=== PATIENT | male | born 1950 | race African-American/Black ===

== ENCOUNTER 2019-05-26 14:37 | Inpatient (IN) | payer OTHER, MEDICAID ==
[~2019-05-26] VITALS: Ht 165.1 cm; Wt 98.9 kg
[2019-05-26 14:41] VITALS: BP_SYST 120
[2019-05-26] MEDS ORDERED: MORPHINE 4 MG/ML INJ. SYRINGE IVP ONE (15:00)
[2019-05-26] MEDS ORDERED: ONDANSETRON HCL 4 MG/2 ML VIAL IVP ONE (15:00)
[2019-05-26] MEDS ORDERED: PIPERACILLIN/TAZO 3.375 GM in NS 50 ML IV ONE (15:00)
[2019-05-26 15:05] LABS: BASOPHILS # (AUTO) 0.1 K/uL (0.0-0.2); BASOPHILS % (AUTO) 0.9 % (0.0-2.0); EOSINOPHILS # (AUTO) 0.1 K/uL (0.0-0.4); EOSINOPHILS % (AUTO) 0.6 % (0.0-4.0); HEMATOCRIT 33.7 % (36-54); HEMOGLOBIN 10.8 g/dL (14.0-18.0); LYMPHOCYTES # (AUTO) 2.1 K/uL (1.0-5.5); LYMPHOCYTES % (AUTO) 20.5 % (20.5-51.5); MEAN CORPUSCULAR HEMOGLOBIN 30 pg (27-31); MEAN CORPUSCULAR HGB CONC 32 % (32-36); MEAN CORPUSCULAR VOLUME 94 fL (79.0-98.0); MONOCYTES % (AUTO) 9.3 % (1.7-9.3); NEUTROPHILS # (AUTO) 7.1 K/uL (1.8-7.7); NEUTROPHILS % (AUTO) 68.7 % (40.0-70.0); PLATELET COUNT (AUTO) 151 K/uL (130-430); RED BLOOD CELL COUNT(AUTO) 3.58 MIL/uL (4.2-6.2); RED CELL DISTRIBUTION WIDTH 21.4 % (9.0-15.0); WHITE BLOOD COUNT (AUTO) 10.4 K/uL (4.8-10.8)
[2019-05-26 15:19] LABS: CHLORIDE 102 mmol/L (98-107); CREATININE 4.36 mg/dL (0.55-1.30); GLUCOSE 188 mg/dL (70-99); UREA NITROGEN, BLOOD 11 mg/dL (8-21)
[2019-05-26 15:22] LABS: GFR AFRICAN AMERICAN 17 mL/min (>90)
[2019-05-26 15:23] LABS: INR 1.2 (0.80-1.20); PROTHROMBIN TIME 12.2 SECS (9.5-12.5)
[2019-05-26 15:24] LABS: ALANINE AMINOTRANSFERASE 7 U/L (12-78); ALBUMIN 1.9 g/dL (3.4-4.8); ASPARTATE AMINOTRANSFERASE 9 U/L (10-37); TOTAL BILIRUBIN 0.7 mg/dL (0.0-1.0)
[2019-05-26 15:26] LABS: ALCOHOL, BLOOD < 3 mg/dL (<10); POTASSIUM 2.5 mmol/L (3.5-5.1)
[2019-05-26 15:31] LABS: ANION GAP 4 (5-15); SODIUM SERUM 138 mmol/L (136-145)
[2019-05-26] MEDS ORDERED: PIPERACILLIN/TAZOBACTAM 3.375 GM/VIAL (ZOSYN) IV ONE (15:32)
[2019-05-26] MEDS ORDERED: METR500T PO (15:58)
[2019-05-26] MEDS ORDERED: CALC0.258 PO (15:58)
[2019-05-26] MEDS ORDERED: CLAR250T12 PO (15:58)
[2019-05-26] MEDS ORDERED: CAS50 PO ×2 (15:58→16:02)
[2019-05-26] MEDS ORDERED: NACL 0.9% 3,000 ML IV ONE (16:00)
[2019-05-26] MEDS ORDERED: POTASSIUM CHLORIDE 20 MEQ TAB.PRT.SR PO ONE (16:00)
[2019-05-26] MEDS ORDERED: SITA100T11 PO (16:02)
[2019-05-26] MEDS ORDERED: PRO40 PO (16:02)
[2019-05-26] MEDS ORDERED: LIP40 PO (16:02)
[2019-05-26] MEDS ORDERED: CLOP300T2 PO (16:02)
[2019-05-26] MEDS ORDERED: CARV3.1246 PO (16:02)
[2019-05-26] MEDS ORDERED: FOLI-43 PO (16:02)
[2019-05-26 20:15] VITALS: BP_SYST 93
[2019-05-26] MEDS ORDERED: DEXTROSE 50% JECT 50 ML DISP.SYRIN IVP PRN (20:30)
[2019-05-26 21:00] VITALS: BP_SYST 92
[2019-05-26] MEDS: CARVEDILOL 3.125 MG TABLET (COREG) PO SCH (21:00)
[2019-05-26] MEDS: CALCITRIOL 0.25 MCG CAPSULE PO SCH (22:12)
[2019-05-27 00:21] VITALS: BP_SYST 111
[2019-05-27] MEDS ORDERED: HYDROcodone/ACETAMIN 5-325 MG TAB (NORCO/ VICODIN) PO SCH (05:15)
[2019-05-27] MEDS: DIPHENHYDRAMINE HCL 25 MG CAPSULE PO PRN ×3 (05:41→23:41)
[2019-05-27 05:57] LABS: BASOPHILS % (AUTO) 0.5 % (0.0-2.0); EOSINOPHILS # (AUTO) 0.1 K/uL (0.0-0.4); EOSINOPHILS % (AUTO) 1.4 % (0.0-4.0); HEMATOCRIT 32.1 % (36-54); HEMOGLOBIN 10.4 g/dL (14.0-18.0); LYMPHOCYTES # (AUTO) 1.4 K/uL (1.0-5.5); LYMPHOCYTES % (AUTO) 15.3 % (20.5-51.5); MEAN CORPUSCULAR HEMOGLOBIN 31 pg (27-31); MEAN CORPUSCULAR HGB CONC 33 % (32-36); MEAN CORPUSCULAR VOLUME 95 fL (79.0-98.0); MONOCYTES # (AUTO) 1.1 K/uL (0.0-1.0); MONOCYTES % (AUTO) 11.5 % (1.7-9.3); NEUTROPHILS # (AUTO) 6.7 K/uL (1.8-7.7); NEUTROPHILS % (AUTO) 71.3 % (40.0-70.0); PLATELET COUNT (AUTO) 146 K/uL (130-430); RED BLOOD CELL COUNT(AUTO) 3.39 MIL/uL (4.2-6.2); RED CELL DISTRIBUTION WIDTH 21.6 % (9.0-15.0); WHITE BLOOD COUNT (AUTO) 9.3 K/uL (4.8-10.8)
[2019-05-27] MEDS: PANTOPRAZOLE SODIUM 40 MG TAB PO SCH ×2 (06:00→18:07)
[2019-05-27 06:55] LABS: ALBUMIN 1.8 g/dL (3.4-4.8); CALCIUM 7.7 mg/dL (8.4-11.0); CREATININE 4.73 mg/dL (0.55-1.30); TOTAL BILIRUBIN 0.6 mg/dL (0.0-1.0)
[2019-05-27 07:36] LABS: POTASSIUM 2.5 mmol/L (3.5-5.1)
[2019-05-27] MEDS ORDERED: POTASSIUM CHLORIDE 20 MEQ TAB.PRT.SR PO ONE (08:00)
[2019-05-27] MEDS: ATORVASTATIN 20 MG TABLET PO SCH (08:10)
[2019-05-27] MEDS: CARVEDILOL 3.125 MG TABLET (COREG) PO SCH ×2 (08:10→20:36)
[2019-05-27] MEDS: CLOPIDOGREL BISULFATE 75 MG TABLET PO SCH (08:10)
[2019-05-27] MEDS: CALCITRIOL 0.25 MCG CAPSULE PO SCH ×4 (08:10→20:35)
[2019-05-27] MEDS: FOLIC ACID 1 MG TABLET PO SCH (08:10)
[2019-05-27 08:29] VITALS: BP_SYST 107
[2019-05-27] MEDS ORDERED: BICALUTAMIDE 50 MG TABLET PO SCH ×2 (09:00)
[2019-05-27] MEDS: BICALUTAMIDE 50 MG PO SCH (11:58)
[2019-05-27 12:00] VITALS: BP_SYST 98
[2019-05-27] MEDS: INSULIN REGULAR, HUMAN 100 UNITS/ML, 10 ML VIAL (humuLIN R) SUBCUT PRN ×2 (12:27→23:44)
[2019-05-27 16:29] VITALS: BP_SYST 115
[2019-05-27 20:00] VITALS: BP_SYST 120
[2019-05-27] MEDS ORDERED: MORPHINE 2 MG/ML INJ. SYRINGE IVP PRN (21:15)
[2019-05-27 23:56] VITALS: BP_SYST 108
[2019-05-28] MEDS: PANTOPRAZOLE SODIUM 40 MG TAB PO SCH ×2 (06:11→17:21)
[2019-05-28 06:15] LABS: BASOPHILS % (AUTO) 0.7 % (0.0-2.0); EOSINOPHILS # (AUTO) 0.2 K/uL (0.0-0.4); EOSINOPHILS % (AUTO) 2.1 % (0.0-4.0); HEMATOCRIT 29.4 % (36-54); HEMOGLOBIN 9.4 g/dL (14.0-18.0); LYMPHOCYTES # (AUTO) 1.7 K/uL (1.0-5.5); LYMPHOCYTES % (AUTO) 22.1 % (20.5-51.5); MEAN CORPUSCULAR HEMOGLOBIN 31 pg (27-31); MEAN CORPUSCULAR HGB CONC 32 % (32-36); MEAN CORPUSCULAR VOLUME 96 fL (79.0-98.0); MONOCYTES # (AUTO) 0.8 K/uL (0.0-1.0); MONOCYTES % (AUTO) 10.8 % (1.7-9.3); NEUTROPHILS # (AUTO) 4.8 K/uL (1.8-7.7); NEUTROPHILS % (AUTO) 64.3 % (40.0-70.0); PLATELET COUNT (AUTO) 141 K/uL (130-430); RED BLOOD CELL COUNT(AUTO) 3.06 MIL/uL (4.2-6.2); RED CELL DISTRIBUTION WIDTH 22.1 % (9.0-15.0); WHITE BLOOD COUNT (AUTO) 7.5 K/uL (4.8-10.8)
[2019-05-28 06:20] LABS: ALBUMIN 1.5 g/dL (3.4-4.8); CREATININE 5.94 mg/dL (0.55-1.30); POTASSIUM 3.1 mmol/L (3.5-5.1); TOTAL BILIRUBIN 0.4 mg/dL (0.0-1.0)
[2019-05-28 06:59] LABS: CALCIUM 6.8 mg/dL (8.4-11.0)
[2019-05-28 07:49] VITALS: BP_SYST 90
[2019-05-28 08:53] VITALS: BP_SYST 101
[2019-05-28] MEDS: FOLIC ACID 1 MG TABLET PO SCH (08:54)
[2019-05-28] MEDS: CLOPIDOGREL BISULFATE 75 MG TABLET PO SCH (08:54)
[2019-05-28] MEDS: ATORVASTATIN 20 MG TABLET PO SCH (08:55)
[2019-05-28] MEDS: CALCITRIOL 0.25 MCG CAPSULE PO SCH ×4 (08:55→21:37)
[2019-05-28] MEDS: BICALUTAMIDE 50 MG PO SCH (08:56)
[2019-05-28] MEDS: CARVEDILOL 3.125 MG TABLET (COREG) PO SCH ×2 (08:58→21:42)
[2019-05-28] MEDS: INSULIN REGULAR, HUMAN 100 UNITS/ML, 10 ML VIAL (humuLIN R) SUBCUT PRN ×2 (11:30→23:50)
[2019-05-28 12:18] VITALS: BP_SYST 93
[2019-05-28 16:44] VITALS: BP_SYST 96
[2019-05-29] VITALS: BP_SYST 157
[2019-05-29] MEDS: LOPERAMIDE HCL 2 MG CAPSULE PO PRN ×2 (01:27→12:12)
[2019-05-29] MEDS: PANTOPRAZOLE SODIUM 40 MG TAB PO SCH ×2 (06:46→17:16)
[2019-05-29 08:00] VITALS: BP_SYST 112
[2019-05-29] MEDS: CARVEDILOL 3.125 MG TABLET (COREG) PO SCH (08:50)
[2019-05-29] MEDS: CALCITRIOL 0.25 MCG CAPSULE PO SCH ×3 (08:50→17:16)
[2019-05-29] MEDS: CLOPIDOGREL BISULFATE 75 MG TABLET PO SCH (08:50)
[2019-05-29] MEDS: FOLIC ACID 1 MG TABLET PO SCH (08:50)
[2019-05-29] MEDS: ATORVASTATIN 20 MG TABLET PO SCH (08:51)
[2019-05-29] MEDS: BICALUTAMIDE 50 MG PO SCH (08:51)
[2019-05-29] MEDS: INSULIN REGULAR, HUMAN 100 UNITS/ML, 10 ML VIAL (humuLIN R) SUBCUT PRN (12:16)
[2019-05-29 12:25] VITALS: BP_SYST 100
[2019-05-29 16:45] VITALS: BP_SYST 99
[2019-05-29 16:46] LABS: CREATININE 4.97 mg/dL (0.55-1.30); POTASSIUM 3.6 mmol/L (3.5-5.1)
[2019-05-29 17:34] VITALS: BP_SYST 103
== END 2019-05-29 18:25 | DRG 682 ==
LOC: SED 14:37 → STU 17:28 → SMU 05-27 18:30
PROVIDERS: ADMIT Internal Medicine Hospice and Palliative Medicine; ATTEND Internal Medicine Hospice and Palliative Medicine
PROC: 5A1D70Z Performance of Urinary Filtration, Intermittent, Less than 6 Hours Per Day (ICD-10-PCS; principal; 2019-05-28)
DX: I12.0 Hypertensive chronic kidney disease with stage 5 chronic kidney disease or end stage renal disease (principal); N18.6 End stage renal disease; R65.10 Systemic inflammatory response syndrome (SIRS) of non-infectious origin without acute organ dysfunction; E87.6 Hypokalemia; L89.91 Pressure ulcer of unspecified site, stage 1; E11.22 Type 2 diabetes mellitus with diabetic chronic kidney disease; E11.51 Type 2 diabetes mellitus with diabetic peripheral angiopathy without gangrene; E78.00 Pure hypercholesterolemia, unspecified; K21.9 Gastro-esophageal reflux disease without esophagitis; Z89.511 Acquired absence of right leg below knee; Z89.512 Acquired absence of left leg below knee; Z99.2 Dependence on renal dialysis; Z79.899 Other long term (current) drug therapy
CPT/HCPCS: 36415; 71045; 80048; 80053; 82962; 83605; 84484; 85025; 85610-TC; 85730-TC; 87040-TC; 87081; 90935; 93005; 96365; 96375; 99285; G0378; G0482; J2270; J2405; J2543; Q0163